=== PATIENT | male | born 1975 | race Two or more races ===

== ENCOUNTER 2017-08-12 09:53 | Emergency (ER) | payer BC ==
[~2017-08-12] VITALS: Ht 177.8 cm; Wt 99.8 kg
[2017-08-12 10:22] VITALS: BP 126/92
[2017-08-12] MEDS ORDERED: TETRACAINE 1% INJ 2 ML VIAL IJ ONE (11:15)
[2017-08-12] MEDS ORDERED: FLUORESCEIN SOD 1 MG TEST STRIP OP ONE (11:15)
== END 2017-08-12 12:03 | disposition home or self-care (01) ==
LOC: ER 09:53
DX: T15.01XA Foreign body in cornea, right eye, initial encounter (principal); X58.XXXA Exposure to other specified factors, initial encounter; Y93.89 Activity, other specified; Y92.89 Other specified places as the place of occurrence of the external cause; Y99.8 Other external cause status
CPT/HCPCS: 65220

== ENCOUNTER → 2017-08-22 | Outpatient (CLI) | payer BC | END | disposition home or self-care (01) | LOC: Rad HDHVI 15:49 | PROVIDERS: ATTEND Internal Medicine Cardiovascular Disease | DX: R00.1 Bradycardia, unspecified (principal); R07.89 Other chest pain | CPT/HCPCS: 93306 ==

== ENCOUNTER → 2017-09-05 | Outpatient (CLI) | payer BC ==
[~2017-09-05] VITALS: Ht 177.8 cm; Wt 99.8 kg
== END | disposition home or self-care (01) ==
LOC: Rad HDHVI 13:59
PROVIDERS: ATTEND Internal Medicine Cardiovascular Disease
DX: R07.89 Other chest pain (principal); R00.1 Bradycardia, unspecified; M19.90 Unspecified osteoarthritis, unspecified site; F41.9 Anxiety disorder, unspecified
CPT/HCPCS: 78452; 93017; 96374; A9500

== ENCOUNTER 2019-02-06 17:56 | Emergency (ER) | payer BC ==
[~2019-02-06] VITALS: Ht 177.8 cm; Wt 97.1 kg
[2019-02-06 18:18] VITALS: BP 127/78
[2019-02-06] MEDS ORDERED: FLUORESCEIN SOD 1 MG TEST STRIP EACHEYE ONE (21:45)
[2019-02-06] MEDS ORDERED: GENTAMICIN OPTH sol 0.3% 5ml EACHEYE ONE (22:00)
== END 2019-02-06 22:32 | disposition home or self-care (01) ==
LOC: ER 17:56
DX: T15.02XA Foreign body in cornea, left eye, initial encounter (principal); X58.XXXA Exposure to other specified factors, initial encounter; Y93.89 Activity, other specified; Y99.8 Other external cause status; Y92.89 Other specified places as the place of occurrence of the external cause
CPT/HCPCS: 65220